=== PATIENT | female | born 2000 | race Caucasian/White ===

== ENCOUNTER 2021-05-08 23:35 | Emergency (ER) | payer OTHER ==
[~2021-05-08] VITALS: Ht 167.6 cm; Wt 65.8 kg
[2021-05-09 00:05] VITALS: BP 111/67
--- NOTE | 2021-05-09 00:10 | NUR ---
PT PRESENTED TO ED C/O BILAT EYE PAIN S/P ACCIDENTLY SPILLING BLEACH IN HER EYE AT 1900 LAST NIGHT. +RT EYE REDNESS, WATERY, AND CLEAR DISCHARGE NOTED. 8/10 PAIN. +BLURRY VISION BUT NO DOUBLE VISION. A&OX4. STEADY GAIT NOTED. NKDA. PMH: DENIES.
--- NOTE | 2021-05-09 00:35 | NUR ---
TOOK PT TO THE EYE WASHING STATION AT THIS TIME.
--- NOTE | 2021-05-09 01:03 | NUR ---
VISUAL ACUITY TEST: LT EYE 20/20, RT EYE 20/25, BOTH 20/20
[2021-05-09] MEDS ORDERED: TETRACAINE HCL/PF 0.5% OPTH 4 ML BTL OP ONE (01:25)
[2021-05-09] MEDS ORDERED: ERYTHROMYCIN 0.5% OPTH OINT 1 GM TUBE OP ONE (01:25)
[2021-05-09] MEDS ORDERED: FLUORESCEIN OPTH STRIP 1 MG ONE ×2 (01:28→01:29)
[2021-05-09] MEDS ORDERED: TOMOMETER 1 DEV DEV MC ONE (02:56)
[2021-05-09 03:34] VITALS: BP 122/65
--- NOTE | 2021-05-09 03:34 | NUR ---
Patient does not wish to proceed with medical care recommended by DR. YANEZ. Patient given information related to possible complications, up to and including , which could occur as a result of leaving hospital at this time. Patient verbalizes understanding of risks involved leaving against medical advice. Patient has signed AMA form.
[2021-05-09] MEDS ORDERED: TOBR5SOL17 BOTH EYES (03:36)
== END 2021-05-09 03:34 | disposition left against medical advice (07) ==
LOC: MED 23:35
DX: T26.92XA Corrosion of left eye and adnexa, part unspecified, initial encounter (principal); T26.91XA Corrosion of right eye and adnexa, part unspecified, initial encounter; Z79.899 Other long term (current) drug therapy; X58.XXXA Exposure to other specified factors, initial encounter; Y93.89 Activity, other specified; Y92.89 Other specified places as the place of occurrence of the external cause; Y99.8 Other external cause status
CPT/HCPCS: 99283

== ENCOUNTER 2021-10-06 20:55 | Emergency (ER) | payer OTHER ==
[~2021-10-06] VITALS: Ht 167.6 cm; Wt 66.7 kg
[~2021-10-06 20:55] MED LIST: TOBR5SOL17 BOTH EYES
[2021-10-06 21:07] VITALS: BP 124/71
--- NOTE | 2021-10-06 21:14 | NUR ---
patient to [facility] ambulatory
--- NOTE | 2021-10-06 22:39 | NUR ---
examined by SAM in chair A
[2021-10-06] MEDS ORDERED: ACETAMINOPHEN EXTRA STRENGTH 500 MG TAB PO ONE (23:10)
[2021-10-06] MEDS ORDERED: cephALEXin 500 MG CAP PO ONE (23:10)
[2021-10-06] MEDS ORDERED: CEPH-588 PO (23:11)
[2021-10-07 00:03] VITALS: BP 120/66
== END 2021-10-07 00:05 | disposition home or self-care (01) ==
LOC: MED 20:55
DX: S90.561A Insect bite (nonvenomous), right ankle, initial encounter (principal); L03.115 Cellulitis of right lower limb; W57.XXXA Bitten or stung by nonvenomous insect and other nonvenomous arthropods, initial encounter; Y93.89 Activity, other specified; Y92.89 Other specified places as the place of occurrence of the external cause; Y99.8 Other external cause status
CPT/HCPCS: 99284; Q0163

== ENCOUNTER 2024-03-24 23:34 | Emergency (ER) | payer OTHER ==
[~2024-03-24] VITALS: Ht 167.6 cm; Wt 74.8 kg
[~2024-03-24 23:34] MED LIST changes: +CEPH-588 PO; -TOBR5SOL17 BOTH EYES; +TOBR5SOL38 BOTH EYES
[2024-03-25 00:04] VITALS: BP 115/78; PULSE 78; RESP 20; TEMP 98; O2SAT 98
[2024-03-25 00:10] VITALS: BP 115/78; PULSE 78; RESP 20; TEMP 98
[2024-03-25 01:23] VITALS: O2SAT 98
[2024-03-25] MEDS ORDERED: NAPR-337 PO (02:24)
== END 2024-03-25 02:30 | disposition home or self-care (01) ==
LOC: MED 23:34
DX: S83.8X2A Sprain of other specified parts of left knee, initial encounter (principal); Z88.0 Allergy status to penicillin; Z88.8 Allergy status to other drugs, medicaments and biological substances; Z79.899 Other long term (current) drug therapy; W18.30XA Fall on same level, unspecified, initial encounter; Y93.89 Activity, other specified; Y92.89 Other specified places as the place of occurrence of the external cause; Y99.8 Other external cause status
CPT/HCPCS: 73562; 99283